=== PATIENT | female | born 1965 | race Caucasian/White ===

== ENCOUNTER 2017-03-28 10:13 | Emergency (ER) | payer OTHER ==
[2017-03-28 10:18] VITALS: TEMP 98
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
--- NOTE | 2017-03-28 10:56 | XR ---
EXAMINATION TYPE: XR cervical spine comp DATE OF EXAM: 03/28/2017 10:44 AM CLINICAL HISTORY: pain COMPARISON: NONE TECHNIQUE: Frontal, lateral, oblique, swimmers, and open mouth view of the cervical spine are obtaine d. FINDINGS: The cervical spine is visualized in its entirety from C1 thru the top of T1 level. It is s atisfactory in alignment without evidence of acute fracture or dislocation. The pre-vertebral soft t issue appears within normal limits. Degenerative disc space narrowing noted at C4-5 and C5-6. Mild ve ntral spondylosis noted. The C1-C2 articulation is unremarkable on the open mouth view. The oblique images are within normal limits. IMPRESSION: No acute fracture or dislocation is seen in the cervical spine.ICD 10 NO FRACTURE, INITI AL EVALUATION
[2017-03-28 11:09] VITALS: BP 146/92; PULSE 64; RESP 18
== END 2017-03-28 11:09 | disposition home or self-care (01) ==
LOC: EC 10:13
DX: M54.2 Cervicalgia (principal); M62.838 Other muscle spasm; M25.519 Pain in unspecified shoulder; E11.9 Type 2 diabetes mellitus without complications; I10 Essential (primary) hypertension; E78.5 Hyperlipidemia, unspecified; Z79.899 Other long term (current) drug therapy; Z79.84 Long term (current) use of oral hypoglycemic drugs; V87.8XXA Person injured in other specified noncollision transport accidents involving motor vehicle (traffic), initial encounter; Y92.410 Unspecified street and highway as the place of occurrence of the external cause
CPT/HCPCS: 72050; 99284

== ENCOUNTER → 2023-06-22 | Day surgery (SDC) | payer OTHER ==
--- NOTE | 2023-06-22 09:54 | USB ---
Risk Values: Carlie 5 year model risk: 0.9%. NCI Lifetime model risk: 5.0%. Electronically signed and approved by: Casimiro Yen D.O.
== END ==
LOC: RADUSWWP 07:56
PROVIDERS: ATTEND Surgery
DX: Z53.8 Procedure and treatment not carried out for other reasons (principal)

== ENCOUNTER → 2023-07-12 | Day surgery (SDC) | payer OTHER ==
[2023-07-12 07:57] VITALS: RESP 16
[2023-07-12 09:16] VITALS: BP 160/78; PULSE 60; TEMP 98.1
--- NOTE | 2023-07-15 14:02 | MM ---
Risk Values: Carlie 5 year model risk: 1.4%. NCI Lifetime model risk: 7.6%. Pathology Description: Marker Left Behind. Approach: Medial to Lateral Needle Type: Eviva Cores: 7 Skin Nicks: 1 Gauge: 9 The nodular density in question within the left breast 12:00 position 6.1 cm from the nipple was targeted by the undersigned. Procedure was performed by the undersigned. Informed consent was obtained and all of the patients questions were answered. The standard sterile technique was utilized and appropriate local anesthesia was obtained with 1% lidocaine as well as deep anesthesia with 2% lidocaine and epinephrine. Mammotome probe was advanced and multiple core samples were obtained and sent to pathology for interpretation. Microclip marker was deployed at the site of biopsy. Post procedural mammogram demonstrates appropriate deployment of radiopaque clip marker. The patient tolerated the procedure well and left the department in stable condition. Pathology results are pending. Impression: Successful stereotactic core biopsy left 12:00 breast. Pathology Results: Result: Benign, Fibroadenomatoid hyperplasia. LEFT BREAST, STEREOTACTIC NEEDLE CORE BIOPSY: Fibroadenomatoid hyperplasia in a background of fibrocystic changes including moderate to florid usual type ductal hyperplasia and calcifications. See note. Overall Assessment: Benign Management: Diagnostic Mammogram of the left breast in 6 months. Electronically signed and approved by: Gaetano Bruce M.D. Radiologis
== END ==
LOC: RADMAMWWP 07:38
PROVIDERS: ATTEND Surgery
DX: N60.12 Diffuse cystic mastopathy of left breast (principal); N60.21 Fibroadenosis of right breast; Z85.3 Personal history of malignant neoplasm of breast
CPT/HCPCS: 88305; 88342; 19081; A4648; J2001

== ENCOUNTER 2023-08-04 09:36 | Day surgery (SDC) | payer OTHER ==
[~2023-08-04 09:36] MED LIST: ACETAMINOPHEN TAB 500 MG TAB PO PRN; DEXAMETHASONE SOD PHOSPHATE 4 MG/ML 1 ML VIAL IV ONE; HEPARIN SODIUM,PORCINE/PF 5,000 UNIT/0.5 ML SYRINGE SQ PRN; HYDROmorphone 0.5 MG/0.5 ML SYRINGE IVP PRN; LACTATED RINGERS 1,000 ML IV SCH; ONDANSETRON 4 MG/2 ML VIAL IVP ONE
[2023-08-04] MEDS ORDERED: ONDANSETRON 4 MG/2 ML VIAL ONE (09:58)
[2023-08-04] MEDS ORDERED: ALPRAZolam 0.5 MG TAB ONE (09:58)
[2023-08-04 10:27] LABS: Glucose,Whole Blood 116 mg/dL (70-110)
[2023-08-04] MEDS ORDERED: LIDOCAINE 1% INJ 10MG/ML (20 ML MDV) SQ ONE (11:58)
[2023-08-04] MEDS ORDERED: MIDAZOLAM 2 MG/2 ML VIAL ONE (12:41)
[2023-08-04] MEDS ORDERED: fentaNYL (PF) 50 MCG/ML 2 ML AMP ONE (12:41)
[2023-08-04] MEDS ORDERED: HEPARIN SODIUM,PORCINE 5,000 UNIT/ML 1 ML VIAL ONE (12:41)
[2023-08-04] MEDS ORDERED: PROPOFOL 10 MG/ML 20 ML VIAL IV ONE (12:41)
[2023-08-04] MEDS ORDERED: LIDOCAINE 2% INJ 20 MG/ML (2 ML VIAL) ONE (12:41)
--- NOTE | 2023-08-04 12:45 | NM ---
EXAMINATION TYPE: NM sentinel node injection DATE OF EXAM: 08/04/2023 COMPARISON: 07/12/2023 CLINICAL INDICATION: Female, 58 years old with history of D48.62 LEFT BREAST CANCER/R92.8 ABNORMAL MA MMOGRAM; TECHNIQUE AND FINDINGS: The procedure of sentinel lymph node injection was explained to the patient. The benefits, alternatives, and risks were discussed. An informed consent was then obtained. Overlying skin is cleaned with sterile alcohol. Following this, 477 uCi Tc99m Tilmanocept was inject ed in the upper outer aspect of the left nipple intradermally. The patient tolerated the procedure well without any immediate complication. The patient was kept in the radiology department for short stay after the procedure and then taken to surgery for surgical p rocedure what is presumed intraoperative gamma probe will be used for sentinel lymph node detection. IMPRESSION: Left breast radiotracer injection for sentinel node localization as above.
[2023-08-04] MEDS ORDERED: METHYLENE BLUE 50 MG/10 ML AMPUL INJ ONE (13:13)
[2023-08-04] MEDS ORDERED: NALOXONE 0.4 MG/ML 1 ML VIAL IV PRN (14:21)
[2023-08-04] MEDS ORDERED: HYDROcodone/APAP 5-325MG 1 EACH TAB PO PRN (14:21)
[2023-08-04 14:50] LABS: Glucose,Whole Blood 120 mg/dL (70-110)
[2023-08-04] MEDS ORDERED: HYDROmorphone 0.5 MG/0.5 ML SYRINGE IVP ONE (14:54)
[2023-08-04] MEDS ORDERED: LACTATED RINGERS 1,000 ML IV ONE (15:12)
--- NOTE | 2023-08-04 15:58 | P.OP ---
Date of Procedure: 08/04/23 Procedure(s) Performed: PREOPERATIVE DIAGNOSIS: Left breast cancer POSTOPERATIVE DIAGNOSIS: Same PROCEDURE: Left Breast wire localization lumpectomy with sentinel lymph node biopsy SURGEON: Ashok EBL: 10 mL ANESTHESIA: General COMPLICATIONS: None OPERATIVE PROCEDURE: Patient was placed on the operating room table in the supine position. 2 mL of methylene blue was injected into the subareolar space. The breast was then massaged for 5 minutes. The breast was prepped and draped in usual sterile fashion. The left axilla was addressed at that time. The hot spot in the left axilla was identified. A small curvilinear incision was made using the scalpel. Dissection down through the subcutaneous tissues took place using electrocautery. Using the neoprobe I identified a total of 3 sentinel lymph nodes. 2 of these were blue in color. These had benign exam characteristics. These were all removed and sent to pathology for permanent sectioning. The surgical site was inspected and no bleeding was seen. Gelfoam powder was inserted into the site. The subcutaneous tissues were closed using 3-0 Vicryl sutures. The skin was closed using 4-0 Monocryl sutures. The wire entrance site was then addressed. This was present at the 4:00 location. A curvilinear incision was made adjacent to the wire entrance site. I followed the wire down into the breast tissue. An adequate lumpectomy specimen then took place around the wire. Margins of 1.5-2 cm worth attempted to be achieved. Palpation of the specimen suggested that the posterior margin was somewhat close. I took an additional margin posteriorly and this was painted the appropriate color on the new margin side. The initial specimen was also painted the appropriate 6 colors. Clips were used to identify the lumpectomy cavity. The clip was confirmed to be within the lumpectomy specimen by radiology. The subcutaneous tissues were closed using 3-0 Vicryl sutures. The skin was closed using a running 4-0 Monocryl stitch. Skin glue was then applied. DISPOSITION: Stable to recovery room
[2023-08-04 16:01] VITALS: BP 153/83; PULSE 66; RESP 16; TEMP 97
--- NOTE | 2023-08-11 10:39 | MM ---
Reason for Exam: Post Procedure Mammogram. Patient History: Menarche at age 14. First Full-Term at age 27. Postmenopausal. Patient has history of breast feeding. Previous Hyperplasia w/o Atypia at age 57. 07/12/2023, Benign MG stereo VAD BX LT on the left side. 06/22/2023, US discontinued breast core LT on the left side. Risk Values: Carlie 5 year model risk: 1.7%. NCI Lifetime model risk: 8.7%. Tissue Density: Left: The breast tissue is heterogeneously dense. This may lower the sensitivity of mammography. Pathology Description: Location: 3 o'clock. Needle Type: 7 cm Kopan The procedure of needle localization with wire placement and than surgical excision was explained to the patient. Benefits, alternatives, and risks were discussed. An informed consent was then obtained. The shortest pathway for procedure was chosen. Shortest pathway was a lateral approach. The overlying skin was prepped and draped in usual sterile fashion. Lidocaine was used as anesthetic into the skin and subcutaneous tissue up to the level of area of concern. 7 cm Kopan's needle was used. It was placed via a lateral approach under direct ultrasound guidance. At this point, wire was placed and the needle was withdrawn. Two-view mammogram shows wire to be in satisfactory position relative to the targeted area. The wire was fixed to patient's skin. Images were marked for surgeon. The patient tolerated the procedure well without any immediate complication. The patient was kept in the radiology department for short stay after the procedure and then taken to surgery for surgical excision. Targeted mass, clip, and wire are identified in specimen mammogram. The patient was kept in hospital for short stay after the procedure and then discharged home in stable condition. IMPRESSION: Successful, uncomplicated needle localization with wire placement and surgical excision of biopsy proven left breast cancer. Full pathology results to follow. Pathology Results: Result: Malignant, Invasive ductal carcinoma. A. LEFT AXILLARY SENTINEL NODE: Four lymph nodes negative for metastasis. CK7 and GONZALO immunoperoxidase stains performed on blocks A1, A2, A3, A4 and A5 are confirmatory (controls appropriate). B. LEFT BREAST NEW MEDIAL MARGIN: Benign breast tissue with fibrocystic changes. C. LEFT BREAST, LUMPECTOMY: Invasive moderately differentiated ductal carcinoma (grade 2) and focal intermediate grade DCIS, margins negative. See Surgical Pathology Cancer Case Summary. Overall Assessment: Malignant Assessment: MG diagnostic mammo LT wo CAD. - Left: Known biopsy proven malignancy, BI-RAD 6. Management: Surgical Consultation of the left breast. Electronically signed and approved by: Nuha Sexton M.D. Radiologist
== END 2023-08-04 16:16 | disposition home or self-care (01) ==
LOC: OR 09:36
PROVIDERS: ATTEND Surgery
DX: C50.912 Malignant neoplasm of unspecified site of left female breast (principal)
CPT/HCPCS: 19301; 38525; 88342; 88307; 88341; 77065; 76098; 19285; 38792; C1819; A9520; J2250; J1644 ×2; J1100; J0690; J2405; J2001 ×2; J3010; J2704; Q9968; J1170

== ENCOUNTER → 2024-11-30 | Outpatient (CLI) | payer OTHER ==
--- NOTE | 2024-11-30 10:06 | MM ---
Reason for Exam: Follow-up at short interval from prior study. Last mammogram was performed 1 year(s) and 10 month(s) ago. Patient History: Menarche at age 14. First Full-Term at age 27. Postmenopausal. Patient has history of breast feeding. Breast cancer, left, age 58. Previous chest radiation therapy at age 58. Previous chemotherapy at age 58. Previous Hyperplasia w/o Atypia at age 57. 08/04/2023, Lumpectomy on the Left side. 08/04/2023, Malignant US breast localization LT on the left side. 07/12/2023, Benign MG stereo VAD BX LT on the left side. 06/22/2023, US discontinued breast core LT on the left side. Prior Study Comparison: 10/07/2020 Bilateral Screening Mammogram, Unknown. 02/16/2023 Bilateral Screening Mammogram, Unknown. 08/04/2023 Left MG diagnostic mammo LT wo CAD., [facility]. Tissue Density: There are scattered areas of fibroglandular density. Findings: Analyzed By CAD. Left breast surgical clips. No new suspicious masses, calcifications or distortions. There remains a top had breast clip in the left breast. Overall Assessment: Benign, BI-RAD 2 Management: Screening Mammogram of both breasts in 1 year. Results were given to the patient verbally at the time of exam. Patient should continue monthly self-breast exams. A clinical breast exam by your physician is recommended on an annual basis. This exam should not preclude additional follow-up of suspicious palpable abnormalities. Note on Carlie scores and lifetime risk: 1. A Carlie score greater than 3% is considered moderate risk. If this is the case, consider specialist referral to assess eligibility for a risk reducing agent. 2. If overall lifetime risk for the development of breast cancer is 20% or higher, the patient may qualify for future screening with alternating mammogram and breast MRI. [facility], , 11/30/2024 10:03 AM. Electronically signed and approved by: Wood Mcknight DO
== END | disposition home or self-care (01) ==
LOC: RADMAMWWP 09:08
PROVIDERS: ATTEND Internal Medicine Hematology & Oncology
DX: C50.412 Malignant neoplasm of upper-outer quadrant of left female breast (principal); R92.323 Mammographic fibroglandular density, bilateral breasts; Z78.0 Asymptomatic menopausal state; Z85.3 Personal history of malignant neoplasm of breast
CPT/HCPCS: 77062; 77066